=== PATIENT | female | born 1950 | race Caucasian/White ===

== ENCOUNTER 2018-06-01 11:14 | Emergency (ER) | payer SELFPAY, OTHER | END 2018-06-01 11:30 | disposition left against medical advice (07) | LOC: E/R 11:14 | DX: Z53.21 Procedure and treatment not carried out due to patient leaving prior to being seen by health care provider (principal) ==

== ENCOUNTER 2018-06-02 06:40 | Inpatient (IN) | payer MEDICARE, OTHER ==
[2018-06-02] MEDS ORDERED: ETOMIDATE 20 MG INJ (07:00)
[2018-06-02] MEDS ORDERED: PROPOFOL 1000 MG INJ (07:00)
[2018-06-02] MEDS ORDERED: ROCURONIUM 50 MG INJ ×2 (07:00→09:56)
[2018-06-02] MEDS ORDERED: ALBUMIN HUMAN 5% 250 ML INJ (07:00)
[2018-06-02 07:53] LABS: ADD MAN DIFF? NO
[2018-06-02 07:56] LABS: BASOPHILS % 0.6 % (0.0-2.0); EOSINOPHILS # 0.2 10^3/ul (0.0-0.5); EOSINOPHILS % 2.6 % (0.0-7.0); HEMATOCRIT 42.6 % (37.0-47.0); LYMPHOCYTES # 1.7 10^3/ul (0.8-2.9); LYMPHOCYTES % 27.3 % (15.0-51.0); MEAN CORPUSCULAR HGB CONC 32.9 g/dl (32.0-37.0); MEAN CORPUSCULAR VOLUME 97.3 fl (82.0-101.0); MEAN PLATELET VOLUME 11.7 fl (7.4-10.4); MONOCYTE # 0.5 10^3/ul (0.3-0.9); NEUTROPHIL # 3.8 10^3/ul (1.6-7.5); NEUTROPHILS % 61.2 % (39.0-77.0); PLATELET COUNT 160 10^3/UL (140-415); RED BLOOD COUNT 4.38 10^6/ul (4.20-5.40); RED CELL DISTRIBUTION WIDTH 12.1 % (11.5-14.5)
[2018-06-02 07:56] LABS: WHITE BLOOD COUNT 6.2 10^3/ul (4.8-10.8)
[2018-06-02 08:13] LABS: INR 0.91; PROTIME 12.3 Sec (11.9-14.9)
[2018-06-02 08:16] LABS: ALANINE AMINOTRANSFERASE 53 IU/L (13-69); ALBUMIN/GLOBULIN RATIO 1.14; ALKALINE PHOSPHATASE 82 IU/L (42-121); ANION GAP 8 (5-13); ASPARTATE AMINO TRANSFERASE 47 IU/L (15-46); BILIRUBIN,INDIRECT 0.4 mg/dl (0-1.1); BILIRUBIN,TOTAL 0.4 mg/dl (0.2-1.3); BLOOD UREA NITROGEN 16 mg/dl (7-20); CALCIUM 8.7 mg/dl (8.4-10.2); CARBON DIOXIDE 27 mmol/L (21-31); CHLORIDE 107 mmol/L (97-110); CREATININE 0.69 mg/dl (0.44-1.00); Estimated GFR > 60 mL/min (>60); GLUCOSE 116 mg/dl (70-220); POTASSIUM 4.1 mmol/L (3.5-5.1); SODIUM 142 mmol/L (135-144); TOTAL PROTEIN 7.5 g/dl (6.1-8.1)
[2018-06-02 08:32] LABS: PARTIAL THROMBOPLASTIN TIME 35.5 Sec (23.0-35.0)
[2018-06-02] MEDS ORDERED: FENTAnyl 50 MCG/ML VIAL IV ×2 (09:00)
[2018-06-02] MEDS ORDERED: TRIMETHOBENZAMIDE 100 MG/ML VIAL IM (09:00)
[2018-06-02] MEDS ORDERED: ONDANSETRON 4 MG INJ IV (09:00)
[2018-06-02] MEDS ORDERED: ALBUTEROL 0.083% (NEB) 2.5 MG/3 ML AMP HHN (09:00)
[2018-06-02] MEDS ORDERED: LABETALOL HCL 20MG INJ IV (09:00)
[2018-06-02] MEDS ORDERED: OXYCODONE/ACETAMINOPHEN (5/325) TAB PO (09:00)
[2018-06-02] MEDS ORDERED: IPRATROPIUM (NEB) 0.5 MG/2.5 ML AMP HHN (09:00)
[2018-06-02] MEDS ORDERED: MIDAZOLAM 1 MG/ML 2 ML INJ IV (09:00)
[2018-06-02] MEDS ORDERED: MEPERIDINE 25 MG INJ IV (09:00)
[2018-06-02] MEDS ORDERED: HYDROmorphONE 1 MG/5 ML IV SYRINGE IV ×3 (09:00→13:18)
[2018-06-02] MEDS ORDERED: EPHEDrine SULFATE 50 MG/5 ML SYG IV (09:00)
[2018-06-02] MEDS ORDERED: hydrALAzine 20 MG INJ IV (09:00)
[2018-06-02] MEDS ORDERED: PROPOFOL 20 ML (09:56)
[2018-06-02] MEDS ORDERED: MIDAZOLAM 1 MG/ML 2 ML INJ (09:56)
[2018-06-02] MEDS ORDERED: ONDANSETRON 4 MG INJ (09:56)
[2018-06-02] MEDS ORDERED: FENTAnyl 50 MCG/ML VIAL (09:56)
[2018-06-02] MEDS ORDERED: DEXAMETHASONE 4 MG/ML 1 ML INJ (09:56)
[2018-06-02] MEDS ORDERED: NEOSTIGMINE 3 MG/3 ML SYRINGE (09:56)
[2018-06-02] MEDS ORDERED: GLYCOPYRROLATE 0.4 MG INJ (09:56)
[2018-06-02] MEDS ORDERED: CEFAZOLIN 1 GM INJ (09:56)
[2018-06-02] MEDS ORDERED: ACETAMINOPHEN 325 MG TAB PO (10:00)
[2018-06-02] MEDS ORDERED: NACL 0.9% 3 ML SYG IV (10:00)
[2018-06-02] MEDS ORDERED: hydrALAzine 20 MG INJ (10:44)
[2018-06-02] MEDS ORDERED: LABETALOL HCL 20MG INJ (10:52)
[2018-06-02] MEDS: HEPARIN 1000 UNITS/ML 10 ML INJ (10:55)
[2018-06-02] MEDS: CEFAZOLIN 1 GM INJ (10:56)
[2018-06-02] MEDS: GELATIN SIZE 100 SPONGE ×2 (10:56→12:30)
[2018-06-02] MEDS: THROMBIN 5000 UNIT VIAL ×2 (10:57→12:32)
[2018-06-02] MEDS: HEMOSTATIC MATRIX SYG ZFS ×2 (10:58→12:29)
[2018-06-02] MEDS ORDERED: PHENYLephrine (100 MCG/ML) 5ML SYG (11:24)
[2018-06-02] MEDS ORDERED: GELATIN SIZE 100 SPONGE (11:27)
[2018-06-02] MEDS ORDERED: THROMBIN 5000 UNIT VIAL (11:27)
[2018-06-02] MEDS ORDERED: SUGAMMADEX SODIUM 200 MG/2 ML VIAL IV (12:45)
[2018-06-02] MEDS: HYDROmorphONE 1 MG/5 ML IV SYRINGE IV (13:32)
[2018-06-02] MEDS: HYDROmorphONE 0.2 MG/ML PCA IV (13:42)
[2018-06-02] MEDS: FENTAnyl 50 MCG/ML VIAL IV (13:43)
[2018-06-02] MEDS: DIPHENHYDRAMINE 50 MG INJ IV (14:03)
[2018-06-02] MEDS: OXYCODONE/ACETAMINOPHEN (5/325) TAB PO ×2 (18:47→22:42)
[2018-06-02] MEDS: DEXTROSE 5%-0.45% NACL 1,000 ML IV (19:03)
[2018-06-02] MEDS: ATORVASTATIN 10 MG TAB PO (22:42)
[2018-06-03] MEDS: OXYCODONE/ACETAMINOPHEN (5/325) TAB PO (04:14)
[2018-06-03 05:52] LABS: HEMATOCRIT 34.1 % (37.0-47.0); HEMOGLOBIN 11.1 g/dl (12.0-16.0)
[2018-06-03] MEDS: LEVOTHYROXINE 125 MCG TAB PO (06:15)
[2018-06-03] MEDS: HYDROmorphONE 0.2 MG/ML PCA IV ×2 (06:15→20:05)
[2018-06-03 06:31] LABS: ANION GAP 12 (5-13); BLOOD UREA NITROGEN 22 mg/dl (7-20); CARBON DIOXIDE 22 mmol/L (21-31); CHLORIDE 104 mmol/L (97-110); CREATININE 0.98 mg/dl (0.44-1.00); Estimated GFR 57 mL/min (>60); GLUCOSE 160 mg/dl (70-220); POTASSIUM 4.8 mmol/L (3.5-5.1); SODIUM 138 mmol/L (135-144)
[2018-06-03] MEDS ORDERED: ROCURONIUM 50 MG INJ ×2 (07:00→13:08)
[2018-06-03] MEDS: DEXTROSE 5%-0.45% NACL 1,000 ML IV ×3 (08:20→16:44)
[2018-06-03] MEDS: CITALOPRAM 20 MG TAB PO (08:30)
[2018-06-03] MEDS: BENAZEPRIL 20 MG TAB PO (08:30)
[2018-06-03] MEDS ORDERED: THROMBIN 5000 UNIT VIAL (12:47)
[2018-06-03] MEDS ORDERED: GELATIN SIZE 100 SPONGE (12:47)
[2018-06-03] MEDS ORDERED: MIDAZOLAM 1 MG/ML 2 ML INJ (13:08)
[2018-06-03] MEDS ORDERED: PROPOFOL 20 ML (13:08)
[2018-06-03] MEDS ORDERED: CEFAZOLIN 1 GM INJ (13:08)
[2018-06-03] MEDS ORDERED: DEXAMETHASONE 4 MG/ML 1 ML INJ (14:42)
[2018-06-03] MEDS ORDERED: ONDANSETRON 4 MG INJ (14:42)
[2018-06-03] MEDS ORDERED: METOCLOPRAMIDE 10 MG INJ (14:42)
[2018-06-03] MEDS: POLYMYXIN/BACITRACIN 1L IRRIG (14:53)
[2018-06-03] MEDS: ROPIVACAINE 0.5 % 30 ML VIAL (14:54)
[2018-06-03] MEDS ORDERED: LABETALOL HCL 20MG INJ IV (15:30)
[2018-06-03] MEDS ORDERED: ALBUMIN HUMAN 5% 250 ML IV (15:30)
[2018-06-03] MEDS ORDERED: ONDANSETRON 4 MG INJ IV (15:30)
[2018-06-03] MEDS ORDERED: hydrALAzine 20 MG INJ IV (15:30)
[2018-06-03] MEDS ORDERED: EPHEDrine SULFATE 50 MG/5 ML SYG IV (15:30)
[2018-06-03] MEDS ORDERED: DIPHENHYDRAMINE 50 MG INJ IV (15:30)
[2018-06-03] MEDS ORDERED: METOCLOPRAMIDE 10 MG INJ IV (15:30)
[2018-06-03] MEDS ORDERED: FENTAnyl 50 MCG/ML VIAL IV ×3 (15:30)
[2018-06-03] MEDS ORDERED: MEPERIDINE 25 MG INJ IV (15:30)
[2018-06-03] MEDS ORDERED: HYDROmorphONE 0.5 MG/0.5 ML SYG IV ×2 (15:30)
[2018-06-03] MEDS ORDERED: SUGAMMADEX SODIUM 200 MG/2 ML VIAL IV (15:40)
[2018-06-03] MEDS ORDERED: ACETAMINOPHEN 1000MG/100ML IV 100 ML (15:40)
[2018-06-03] MEDS: CEFAZOLIN 2 GM/50 ML (PMX) 50 ML IVPB ×2 (16:44→22:21)
[2018-06-03] MEDS: HYDROmorphONE 0.5 MG/0.5 ML SYG IV (17:02)
[2018-06-03] MEDS: ATORVASTATIN 10 MG TAB PO (21:02)
[2018-06-04] MEDS: CEFAZOLIN 2 GM/50 ML (PMX) 50 ML IVPB ×3 (05:56→21:11)
[2018-06-04] MEDS: DEXTROSE 5%-0.45% NACL 1,000 ML IV (06:00)
[2018-06-04] MEDS: OXYCODONE/ACETAMINOPHEN (5/325) TAB PO ×2 (06:51→21:11)
[2018-06-04] MEDS: LEVOTHYROXINE 125 MCG TAB PO (06:54)
[2018-06-04] MEDS: CITALOPRAM 20 MG TAB PO (08:59)
[2018-06-04] MEDS: BENAZEPRIL 20 MG TAB PO (08:59)
[2018-06-04] MEDS: LIDOCAINE 5% PATCH TD (10:27)
[2018-06-04 18:19] LABS: ADD MAN DIFF? NO
[2018-06-04 18:21] LABS: BASOPHILS % 0.1 % (0.0-2.0); HEMATOCRIT 27.3 % (37.0-47.0); HEMOGLOBIN 8.9 g/dl (12.0-16.0); LYMPHOCYTES # 1.8 10^3/ul (0.8-2.9); MEAN CORPUSCULAR HEMOGLOBIN 33.2 pg (29.0-33.0); MEAN CORPUSCULAR HGB CONC 32.6 g/dl (32.0-37.0); MEAN CORPUSCULAR VOLUME 101.9 fl (82.0-101.0); MEAN PLATELET VOLUME 11.7 fl (7.4-10.4); MONOCYTE # 0.9 10^3/ul (0.3-0.9); MONOCYTES % 6.3 % (0.0-11.0); NEUTROPHIL # 12.1 10^3/ul (1.6-7.5); NEUTROPHILS % 80.5 % (39.0-77.0); PLATELET COUNT 120 10^3/UL (140-415); RED BLOOD COUNT 2.68 10^6/ul (4.20-5.40); RED CELL DISTRIBUTION WIDTH 12.4 % (11.5-14.5)
[2018-06-04 18:47] LABS: ANION GAP 3 (5-13); BLOOD UREA NITROGEN 13 mg/dl (7-20); CALCIUM 7.8 mg/dl (8.4-10.2); CARBON DIOXIDE 28 mmol/L (21-31); CHLORIDE 104 mmol/L (97-110); CREATININE 0.59 mg/dl (0.44-1.00); Estimated GFR > 60 mL/min (>60); GLUCOSE 162 mg/dl (70-220); POTASSIUM 4.1 mmol/L (3.5-5.1); SODIUM 135 mmol/L (135-144)
[2018-06-04] MEDS: ATORVASTATIN 10 MG TAB PO (21:11)
[2018-06-04] MEDS: AL HYDROX/MG HYDROX/SIMETH 30 ML CUP PO (21:11)
[2018-06-04] MEDS: LORAZEPAM 0.5 MG TAB PO (21:11)
[2018-06-04] MEDS: SENNA TAB PO (21:11)
[2018-06-05] MEDS: DEXTROSE 5%-0.45% NACL 1,000 ML IV ×2 (01:01→14:31)
[2018-06-05 05:10] LABS: ADD MAN DIFF? NO
[2018-06-05 05:14] LABS: BASOPHILS % 0.1 % (0.0-2.0); HEMOGLOBIN 8.5 g/dl (12.0-16.0); LYMPHOCYTES # 2.1 10^3/ul (0.8-2.9); LYMPHOCYTES % 18.2 % (15.0-51.0); MEAN CORPUSCULAR HEMOGLOBIN 32.6 pg (29.0-33.0); MEAN CORPUSCULAR HGB CONC 31.5 g/dl (32.0-37.0); MEAN CORPUSCULAR VOLUME 103.4 fl (82.0-101.0); MONOCYTE # 0.8 10^3/ul (0.3-0.9); MONOCYTES % 6.5 % (0.0-11.0); NEUTROPHIL # 8.6 10^3/ul (1.6-7.5); NEUTROPHILS % 74.3 % (39.0-77.0); PLATELET COUNT 126 10^3/UL (140-415); RED BLOOD COUNT 2.61 10^6/ul (4.20-5.40); RED CELL DISTRIBUTION WIDTH 12.4 % (11.5-14.5)
[2018-06-05 05:14] LABS: WHITE BLOOD COUNT 11.6 10^3/ul (4.8-10.8)
[2018-06-05] MEDS: CEFAZOLIN 2 GM/50 ML (PMX) 50 ML IVPB ×3 (05:38→22:04)
[2018-06-05 05:46] LABS: ANION GAP 3 (5-13); BLOOD UREA NITROGEN 13 mg/dl (7-20); CALCIUM 7.6 mg/dl (8.4-10.2); CARBON DIOXIDE 33 mmol/L (21-31); CHLORIDE 103 mmol/L (97-110); CREATININE 0.61 mg/dl (0.44-1.00); Estimated GFR > 60 mL/min (>60); GLUCOSE 125 mg/dl (70-220); POTASSIUM 3.9 mmol/L (3.5-5.1); SODIUM 139 mmol/L (135-144)
[2018-06-05] MEDS: LEVOTHYROXINE 125 MCG TAB PO (08:02)
[2018-06-05] MEDS: CITALOPRAM 20 MG TAB PO (08:42)
[2018-06-05] MEDS: BENAZEPRIL 20 MG TAB PO (08:42)
[2018-06-05] MEDS: LIDOCAINE 5% PATCH TD (08:42)
[2018-06-05] MEDS: MAGNESIUM HYDROXIDE 30ML CUP PO (08:42)
[2018-06-05] MEDS: SENNA TAB PO ×2 (08:42→21:09)
[2018-06-05] MEDS: HYDROmorphONE 0.2 MG/ML PCA IV (13:46)
[2018-06-05] MEDS: LORAZEPAM 0.5 MG TAB PO ×2 (14:29→22:42)
[2018-06-05] MEDS: OXYMETAZOLINE 0.05% 15 ML NAS SPRAY NASAL ×2 (15:00→22:03)
[2018-06-05] MEDS: ATORVASTATIN 10 MG TAB PO (21:09)
[2018-06-06] MEDS: DEXTROSE 5%-0.45% NACL 1,000 ML IV ×2 (02:30→15:09)
[2018-06-06 05:34] LABS: ADD MAN DIFF? NO
[2018-06-06] MEDS: CEFAZOLIN 2 GM/50 ML (PMX) 50 ML IVPB ×3 (05:37→21:00)
[2018-06-06] MEDS: LEVOTHYROXINE 125 MCG TAB PO (05:37)
[2018-06-06 05:38] LABS: BASOPHILS % 0.1 % (0.0-2.0); EOSINOPHILS # 0.1 10^3/ul (0.0-0.5); EOSINOPHILS % 0.7 % (0.0-7.0); HEMATOCRIT 27.4 % (37.0-47.0); HEMOGLOBIN 8.8 g/dl (12.0-16.0); LYMPHOCYTES # 2.1 10^3/ul (0.8-2.9); LYMPHOCYTES % 22.8 % (15.0-51.0); MEAN CORPUSCULAR HEMOGLOBIN 32.6 pg (29.0-33.0); MEAN CORPUSCULAR HGB CONC 32.1 g/dl (32.0-37.0); MEAN CORPUSCULAR VOLUME 101.5 fl (82.0-101.0); MEAN PLATELET VOLUME 11.8 fl (7.4-10.4); MONOCYTE # 0.8 10^3/ul (0.3-0.9); MONOCYTES % 8.5 % (0.0-11.0); NEUTROPHIL # 6.1 10^3/ul (1.6-7.5); NEUTROPHILS % 67.5 % (39.0-77.0); PLATELET COUNT 149 10^3/UL (140-415); RED CELL DISTRIBUTION WIDTH 12.2 % (11.5-14.5)
[2018-06-06 05:38] LABS: WHITE BLOOD COUNT 9.1 10^3/ul (4.8-10.8)
[2018-06-06] MEDS: MAGNESIUM HYDROXIDE 30ML CUP PO (06:01)
[2018-06-06 06:07] LABS: ANION GAP 2 (5-13); BLOOD UREA NITROGEN 9 mg/dl (7-20); CALCIUM 7.4 mg/dl (8.4-10.2); CARBON DIOXIDE 32 mmol/L (21-31); CHLORIDE 103 mmol/L (97-110); CREATININE 0.54 mg/dl (0.44-1.00); Estimated GFR > 60 mL/min (>60); GLUCOSE 125 mg/dl (70-220); POTASSIUM 3.9 mmol/L (3.5-5.1); SODIUM 137 mmol/L (135-144)
[2018-06-06] MEDS: CITALOPRAM 20 MG TAB PO (08:56)
[2018-06-06] MEDS: SENNA TAB PO ×2 (08:56→21:00)
[2018-06-06] MEDS: BENAZEPRIL 20 MG TAB PO (08:56)
[2018-06-06] MEDS: LIDOCAINE 5% PATCH TD (08:57)
[2018-06-06] MEDS: OXYMETAZOLINE 0.05% 15 ML NAS SPRAY NASAL ×2 (09:36→21:00)
[2018-06-06] MEDS: HYDROmorphONE 0.2 MG/ML PCA IV (10:33)
[2018-06-06] MEDS: OXYCODONE/ACETAMINOPHEN (5/325) TAB PO (19:52)
[2018-06-06] MEDS: ATORVASTATIN 10 MG TAB PO (21:00)
[2018-06-07] MEDS: HYDROmorphONE 0.2 MG/ML PCA IV (03:56)
[2018-06-07] MEDS: CEFAZOLIN 2 GM/50 ML (PMX) 50 ML IVPB (05:06)
[2018-06-07] MEDS: LEVOTHYROXINE 125 MCG TAB PO (05:58)
[2018-06-07] MEDS: DEXTROSE 5%-0.45% NACL 1,000 ML IV (05:59)
[2018-06-07] MEDS: LIDOCAINE 5% PATCH TD (09:31)
[2018-06-07] MEDS: SENNA TAB PO ×2 (09:33→21:00)
[2018-06-07] MEDS: CITALOPRAM 20 MG TAB PO (09:33)
[2018-06-07] MEDS: BENAZEPRIL 20 MG TAB PO (09:37)
[2018-06-07] MEDS: OXYMETAZOLINE 0.05% 15 ML NAS SPRAY NASAL ×2 (09:37→21:47)
[2018-06-07] MEDS: MAGNESIUM HYDROXIDE 30ML CUP PO (09:38)
[2018-06-07] MEDS: BISACODYL 10 MG SUPP PR (12:49)
[2018-06-07] MEDS ORDERED: HYDROCODONE/APAP (10/325) TAB PO (13:00)
[2018-06-07] MEDS: HYDROCODONE/APAP (10/325) TAB PO ×2 (16:11→22:28)
[2018-06-07] MEDS: ATORVASTATIN 10 MG TAB PO (21:45)
[2018-06-08] MEDS: HYDROCODONE/APAP (10/325) TAB PO ×4 (01:03→14:04)
[2018-06-08 05:05] LABS: ADD MAN DIFF? NO
[2018-06-08 05:11] LABS: BASOPHILS % 0.2 % (0.0-2.0); EOSINOPHILS # 0.2 10^3/ul (0.0-0.5); EOSINOPHILS % 2.6 % (0.0-7.0); HEMOGLOBIN 8.8 g/dl (12.0-16.0); LYMPHOCYTES % 22.5 % (15.0-51.0); MEAN CORPUSCULAR HEMOGLOBIN 31.9 pg (29.0-33.0); MEAN CORPUSCULAR HGB CONC 32.6 g/dl (32.0-37.0); MEAN CORPUSCULAR VOLUME 97.8 fl (82.0-101.0); MEAN PLATELET VOLUME 11.4 fl (7.4-10.4); MONOCYTE # 0.7 10^3/ul (0.3-0.9); MONOCYTES % 7.4 % (0.0-11.0); NEUTROPHIL # 5.9 10^3/ul (1.6-7.5); NEUTROPHILS % 66.6 % (39.0-77.0); PLATELET COUNT 180 10^3/UL (140-415); RED BLOOD COUNT 2.76 10^6/ul (4.20-5.40); RED CELL DISTRIBUTION WIDTH 12.2 % (11.5-14.5)
[2018-06-08 05:11] LABS: WHITE BLOOD COUNT 8.8 10^3/ul (4.8-10.8)
[2018-06-08 05:38] LABS: ANION GAP 3 (5-13); BLOOD UREA NITROGEN 7 mg/dl (7-20); CARBON DIOXIDE 29 mmol/L (21-31); CHLORIDE 106 mmol/L (97-110); CREATININE 0.47 mg/dl (0.44-1.00); Estimated GFR > 60 mL/min (>60); GLUCOSE 113 mg/dl (70-220); POTASSIUM 3.9 mmol/L (3.5-5.1); SODIUM 138 mmol/L (135-144)
[2018-06-08] MEDS: LEVOTHYROXINE 125 MCG TAB PO (06:16)
[2018-06-08] MEDS: OXYMETAZOLINE 0.05% 15 ML NAS SPRAY NASAL (08:56)
[2018-06-08] MEDS: BENAZEPRIL 20 MG TAB PO (08:57)
[2018-06-08] MEDS: CITALOPRAM 20 MG TAB PO (08:57)
[2018-06-08] MEDS: SENNA TAB PO (08:57)
[2018-06-08] MEDS: LIDOCAINE 5% PATCH TD (08:59)
[2018-06-08] MEDS: MAGNESIUM HYDROXIDE 30ML CUP PO (10:59)
== END 2018-06-08 18:55 | DRG 455 ==
LOC: REC 06:40 → MS1 06-05 13:47 → ICU 16:28
PROC: 0SG10A0 Fusion of 2 or more Lumbar Vertebral Joints with Interbody Fusion Device, Anterior Approach, Anterior Column, Open Approach (ICD-10-PCS; principal; 2018-06-02 09:00)
PROC: 0SG30A0 Fusion of Lumbosacral Joint with Interbody Fusion Device, Anterior Approach, Anterior Column, Open Approach (ICD-10-PCS; 2018-06-02 09:00)
PROC: 0SB20ZZ Excision of Lumbar Vertebral Disc, Open Approach (ICD-10-PCS; 2018-06-02 09:00)
PROC: 0SB40ZZ Excision of Lumbosacral Disc, Open Approach (ICD-10-PCS; 2018-06-02 09:00)
PROC: 0SG10K1 Fusion of 2 or more Lumbar Vertebral Joints with Nonautologous Tissue Substitute, Posterior Approach, Posterior Column, Open Approach (ICD-10-PCS; 2018-06-02 09:42)
PROC: 0SG30K1 Fusion of Lumbosacral Joint with Nonautologous Tissue Substitute, Posterior Approach, Posterior Column, Open Approach (ICD-10-PCS; 2018-06-02 09:42)
DX: M47.26 Other spondylosis with radiculopathy, lumbar region (principal); M21.379 Foot drop, unspecified foot; G35 Multiple sclerosis; I10 Essential (primary) hypertension; E78.5 Hyperlipidemia, unspecified; E03.9 Hypothyroidism, unspecified; M51.17 Intervertebral disc disorders with radiculopathy, lumbosacral region; E66.9 Obesity, unspecified; Z68.34 Body mass index [BMI] 34.0-34.9, adult
CPT/HCPCS: 71045; 72110; 72114; 72131; 80048; 80053; 85014; 85018; 85025; 85610; 85730; 86850; 86900; 86901; 86920; 87081; 87086; 88304; 93005; 97110; 97116; 97162; 97530

== ENCOUNTER 2018-06-08 19:11 | Inpatient (IN) | payer MEDICARE, OTHER ==
[2018-06-08] MEDS ORDERED: NACL 0.9% 3 ML SYG IV (20:30)
[2018-06-08] MEDS ORDERED: ACETAMINOPHEN 325 MG TAB PO (20:30)
[2018-06-08] MEDS: SENNA TAB PO (21:00)
[2018-06-08] MEDS: OXYMETAZOLINE 0.05% 15 ML NAS SPRAY NASAL (21:00)
[2018-06-08] MEDS: ATORVASTATIN 10 MG TAB PO (21:00)
[2018-06-08] MEDS: HYDROCODONE/APAP (10/325) TAB PO (22:57)
[2018-06-09] MEDS: HYDROCODONE/APAP (10/325) TAB PO ×6 (03:22→21:49)
[2018-06-09] MEDS: AL HYDROX/MG HYDROX/SIMETH 30 ML CUP PO (06:51)
[2018-06-09] MEDS: LEVOTHYROXINE 125 MCG TAB PO (07:30)
[2018-06-09 07:35] LABS: ADD MAN DIFF? NO
[2018-06-09 07:47] LABS: WHITE BLOOD COUNT 8.4 10^3/ul (4.8-10.8)
[2018-06-09 07:47] LABS: BASOPHILS % 0.2 % (0.0-2.0); EOSINOPHILS # 0.2 10^3/ul (0.0-0.5); EOSINOPHILS % 2.8 % (0.0-7.0); HEMATOCRIT 28.4 % (37.0-47.0); HEMOGLOBIN 9.2 g/dl (12.0-16.0); LYMPHOCYTES # 2.2 10^3/ul (0.8-2.9); LYMPHOCYTES % 26.3 % (15.0-51.0); MEAN CORPUSCULAR HEMOGLOBIN 32.4 pg (29.0-33.0); MEAN CORPUSCULAR HGB CONC 32.4 g/dl (32.0-37.0); MEAN PLATELET VOLUME 11.4 fl (7.4-10.4); MONOCYTE # 0.8 10^3/ul (0.3-0.9); MONOCYTES % 9.5 % (0.0-11.0); NEUTROPHIL # 5.1 10^3/ul (1.6-7.5); NEUTROPHILS % 60.4 % (39.0-77.0); PLATELET COUNT 201 10^3/UL (140-415); RED BLOOD COUNT 2.84 10^6/ul (4.20-5.40)
[2018-06-09 08:22] LABS: ALANINE AMINOTRANSFERASE 54 IU/L (13-69); ALBUMIN 2.7 g/dl (3.3-4.9); ALBUMIN/GLOBULIN RATIO 0.96; ALKALINE PHOSPHATASE 136 IU/L (42-121); ANION GAP 3 (5-13); ASPARTATE AMINO TRANSFERASE 50 IU/L (15-46); BILIRUBIN,INDIRECT 0.6 mg/dl (0-1.1); BILIRUBIN,TOTAL 0.6 mg/dl (0.2-1.3); BLOOD UREA NITROGEN 7 mg/dl (7-20); CALCIUM 8.1 mg/dl (8.4-10.2); CARBON DIOXIDE 29 mmol/L (21-31); CHLORIDE 104 mmol/L (97-110); Estimated GFR > 60 mL/min (>60); GLUCOSE 104 mg/dl (70-220); POTASSIUM 4.2 mmol/L (3.5-5.1); SODIUM 136 mmol/L (135-144); TOTAL PROTEIN 5.5 g/dl (6.1-8.1)
[2018-06-09] MEDS: BENAZEPRIL 20 MG TAB PO (08:48)
[2018-06-09] MEDS: CITALOPRAM 20 MG TAB PO (08:48)
[2018-06-09] MEDS: OXYMETAZOLINE 0.05% 15 ML NAS SPRAY NASAL ×2 (08:48→20:32)
[2018-06-09] MEDS: SENNA TAB PO ×2 (08:48→20:33)
[2018-06-09] MEDS: LIDOCAINE 5% PATCH TD (08:51)
[2018-06-09 11:32] LABS: ADD UMIC NO; UR ASCORBIC ACID NEGATIVE (NEGATIVE); UR BILIRUBIN (Dip) NEGATIVE (NEGATIVE); UR BLOOD (Dip) NEGATIVE (NEGATIVE); UR CLARITY CLEAR (CLEAR); UR COLOR YELLOW (YELLOW); UR GLUCOSE (Dip) NEGATIVE (NEGATIVE); UR KETONES (Dip) NEGATIVE (NEGATIVE); UR LEUKOCYTE ESTERASE (Dip) NEGATIVE Leu/ul (NEGATIVE); UR NITRITE (Dip) NEGATIVE (NEGATIVE); UR TOTAL PROTEIN (Dip) NEGATIVE (NEGATIVE); UR UROBILINOGEN (Dip) NEGATIVE (NEGATIVE)
[2018-06-09] MEDS: MAGNESIUM HYDROXIDE 30ML CUP PO (16:09)
[2018-06-09] MEDS: LORAZEPAM 0.5 MG TAB PO (20:14)
[2018-06-09] MEDS: ATORVASTATIN 10 MG TAB PO (20:33)
[2018-06-10] MEDS: HYDROCODONE/APAP (10/325) TAB PO ×4 (05:09→20:19)
[2018-06-10] MEDS: LEVOTHYROXINE 125 MCG TAB PO (08:04)
[2018-06-10] MEDS: SENNA TAB PO ×2 (09:00→20:18)
[2018-06-10] MEDS: CITALOPRAM 20 MG TAB PO (09:13)
[2018-06-10] MEDS: OXYMETAZOLINE 0.05% 15 ML NAS SPRAY NASAL ×2 (09:13→20:20)
[2018-06-10] MEDS: BENAZEPRIL 20 MG TAB PO (09:14)
[2018-06-10] MEDS: LIDOCAINE 5% PATCH TD (09:14)
[2018-06-10] MEDS: ATORVASTATIN 10 MG TAB PO (20:18)
[2018-06-10] MEDS: LORAZEPAM 0.5 MG TAB PO (20:18)
[2018-06-11] MEDS: HYDROCODONE/APAP (10/325) TAB PO ×4 (03:08→19:40)
[2018-06-11] MEDS: LEVOTHYROXINE 125 MCG TAB PO (06:40)
[2018-06-11] MEDS: SENNA TAB PO ×2 (08:30→20:34)
[2018-06-11] MEDS: BENAZEPRIL 20 MG TAB PO (08:31)
[2018-06-11] MEDS: OXYMETAZOLINE 0.05% 15 ML NAS SPRAY NASAL ×2 (08:31→20:34)
[2018-06-11] MEDS: CITALOPRAM 20 MG TAB PO (08:31)
[2018-06-11] MEDS: LIDOCAINE 5% PATCH TD (08:32)
[2018-06-11] MEDS: LORAZEPAM 0.5 MG TAB PO (20:33)
[2018-06-11] MEDS: ATORVASTATIN 10 MG TAB PO (20:34)
[2018-06-12] MEDS: MAGNESIUM HYDROXIDE 30ML CUP PO (01:58)
[2018-06-12] MEDS: HYDROCODONE/APAP (10/325) TAB PO ×3 (01:58→12:29)
[2018-06-12] MEDS: LEVOTHYROXINE 125 MCG TAB PO (06:28)
[2018-06-12] MEDS: BISACODYL 10 MG SUPP PR (06:42)
[2018-06-12] MEDS: BENAZEPRIL 20 MG TAB PO (09:00)
[2018-06-12] MEDS: OXYMETAZOLINE 0.05% 15 ML NAS SPRAY NASAL (09:59)
[2018-06-12] MEDS: LIDOCAINE 5% PATCH TD (09:59)
[2018-06-12] MEDS: SENNA TAB PO (09:59)
[2018-06-12] MEDS: CITALOPRAM 20 MG TAB PO (09:59)
[2018-06-12] MEDS ORDERED: NITROGLYCERIN (SL) 0.4 MG TAB SL (15:30)
[2018-06-12 15:33] LABS: ADD MAN DIFF? NO
[2018-06-12 15:35] LABS: WHITE BLOOD COUNT 6.9 10^3/ul (4.8-10.8)
[2018-06-12 15:35] LABS: BASOPHILS % 0.3 % (0.0-2.0); EOSINOPHILS # 0.2 10^3/ul (0.0-0.5); EOSINOPHILS % 2.2 % (0.0-7.0); HEMATOCRIT 32.9 % (37.0-47.0); HEMOGLOBIN 10.7 g/dl (12.0-16.0); LYMPHOCYTES # 1.7 10^3/ul (0.8-2.9); LYMPHOCYTES % 24.1 % (15.0-51.0); MEAN CORPUSCULAR HEMOGLOBIN 32.2 pg (29.0-33.0); MEAN CORPUSCULAR HGB CONC 32.5 g/dl (32.0-37.0); MEAN CORPUSCULAR VOLUME 99.1 fl (82.0-101.0); MEAN PLATELET VOLUME 10.6 fl (7.4-10.4); MONOCYTE # 0.7 10^3/ul (0.3-0.9); MONOCYTES % 9.7 % (0.0-11.0); NEUTROPHIL # 4.4 10^3/ul (1.6-7.5); NEUTROPHILS % 63.1 % (39.0-77.0); PLATELET COUNT 258 10^3/UL (140-415); RED BLOOD COUNT 3.32 10^6/ul (4.20-5.40); RED CELL DISTRIBUTION WIDTH 12.5 % (11.5-14.5)
[2018-06-12 15:57] LABS: ALANINE AMINOTRANSFERASE 44 IU/L (13-69); ALBUMIN 3.5 g/dl (3.3-4.9); ALBUMIN/GLOBULIN RATIO 1.02; ALKALINE PHOSPHATASE 137 IU/L (42-121); ANION GAP 9 (5-13); ASPARTATE AMINO TRANSFERASE 59 IU/L (15-46); BILIRUBIN,INDIRECT 0.3 mg/dl (0-1.1); BILIRUBIN,TOTAL 0.3 mg/dl (0.2-1.3); BLOOD UREA NITROGEN 12 mg/dl (7-20); CALCIUM 8.5 mg/dl (8.4-10.2); CARBON DIOXIDE 30 mmol/L (21-31); CHLORIDE 99 mmol/L (97-110); CREATININE 0.68 mg/dl (0.44-1.00); Estimated GFR > 60 mL/min (>60); GLUCOSE 136 mg/dl (70-220); MAGNESIUM 2.6 mg/dl (1.7-2.5); POTASSIUM 4.8 mmol/L (3.5-5.1); SODIUM 138 mmol/L (135-144); TOTAL PROTEIN 6.9 g/dl (6.1-8.1)
[2018-06-12 16:06] LABS: TROPONIN-I < 0.012 ng/ml (0.000-0.120)
[2018-06-12] MEDS: ASPIRIN 81 MG TAB PO (16:11)
[2018-06-12 17:02] LABS: CREATINE KINASE 94 IU/L (23-200)
[2018-06-12 17:14] LABS: CK INDEX 0.7; CK-MB 0.69 ng/ml (0.0-2.4); TROPONIN-I 0.018 ng/ml (0.000-0.120)
== END 2018-06-12 15:38 | disposition short-term general hospital (02) | DRG 552 ==
LOC: VRC 19:11
DX: M54.16 Radiculopathy, lumbar region (principal); G35 Multiple sclerosis; I10 Essential (primary) hypertension; E78.5 Hyperlipidemia, unspecified; E03.9 Hypothyroidism, unspecified; R07.9 Chest pain, unspecified; Z98.1 Arthrodesis status; D64.9 Anemia, unspecified
CPT/HCPCS: 80053; 81003; 82550; 82553; 82962; 83735; 84484; 85025; 87081; 87086; 90686; 93005; 97110; 97112; 97116; 97150; 97163; 97167; 97530; 97535

== ENCOUNTER 2018-06-12 16:28 | Observation (INO) | payer MEDICARE, OTHER ==
[2018-06-12] MEDS ORDERED: NITROGLYCERIN (SL) 0.4 MG TAB SL (17:30)
[2018-06-12] MEDS ORDERED: ACETAMINOPHEN 325 MG TAB PO (17:30)
[2018-06-12] MEDS: LORAZEPAM 0.5 MG TAB PO (19:14)
[2018-06-12] MEDS: HYDROCODONE/APAP (10/325) TAB PO (19:14)
[2018-06-12 19:37] LABS: TROPONIN-I < 0.012 ng/ml (0.000-0.120)
[2018-06-12] MEDS: ATORVASTATIN 10 MG TAB PO (20:45)
[2018-06-12] MEDS: OXYMETAZOLINE 0.05% 15 ML NAS SPRAY NASAL (20:45)
[2018-06-12] MEDS: LIDOCAINE 5% PATCH TD (20:47)
[2018-06-12] MEDS: SENNA TAB PO (21:00)
[2018-06-12] MEDS ORDERED: HYDROCODONE/APAP (10/325) TAB PO ×2 (21:00)
[2018-06-12] MEDS ORDERED: LIDOCAINE 5% PATCH TD (21:00)
[2018-06-13 00:36] LABS: TROPONIN-I < 0.012 ng/ml (0.000-0.120)
[2018-06-13] MEDS: HYDROCODONE/APAP (10/325) TAB PO ×4 (00:49→16:41)
[2018-06-13] MEDS: LEVOTHYROXINE 125 MCG TAB PO (06:22)
[2018-06-13 06:55] LABS: TROPONIN-I < 0.012 ng/ml (0.000-0.120)
[2018-06-13] MEDS ORDERED: LEVOTHYROXINE 125 MCG TAB PO (07:00)
[2018-06-13] MEDS ORDERED: CITALOPRAM 20 MG TAB PO (09:00)
[2018-06-13] MEDS ORDERED: BENAZEPRIL 20 MG TAB PO (09:00)
[2018-06-13] MEDS: SENNA TAB PO ×2 (09:18→20:58)
[2018-06-13] MEDS: CITALOPRAM 20 MG TAB PO (09:18)
[2018-06-13] MEDS: MAGNESIUM HYDROXIDE 30ML CUP PO (09:20)
[2018-06-13] MEDS: LIDOCAINE 5% PATCH TD (09:21)
[2018-06-13] MEDS: OXYMETAZOLINE 0.05% 15 ML NAS SPRAY NASAL ×2 (09:24→20:59)
[2018-06-13] MEDS: LORAZEPAM 0.5 MG TAB PO ×2 (11:47→21:07)
[2018-06-13] MEDS: BENAZEPRIL 20 MG TAB PO (12:45)
[2018-06-13] MEDS: CEFAZOLIN 2 GM/50 ML (PMX) 50 ML IVPB (14:33)
[2018-06-13] MEDS: NEOMYC/POLYMYX/BACIT 30 GM OINT TOP ×2 (14:39→20:58)
[2018-06-13] MEDS: ATORVASTATIN 10 MG TAB PO (20:58)
[2018-06-14] MEDS: HYDROCODONE/APAP (10/325) TAB PO ×4 (00:34→21:17)
[2018-06-14] MEDS: CEFAZOLIN 2 GM/50 ML (PMX) 50 ML IVPB (00:42)
[2018-06-14] MEDS: LEVOTHYROXINE 125 MCG TAB PO (06:18)
[2018-06-14] MEDS: MAGNESIUM HYDROXIDE 30ML CUP PO (08:50)
[2018-06-14] MEDS: BENAZEPRIL 20 MG TAB PO (08:51)
[2018-06-14] MEDS: CITALOPRAM 20 MG TAB PO (08:51)
[2018-06-14] MEDS: SENNA TAB PO ×2 (08:51→20:22)
[2018-06-14] MEDS: LIDOCAINE 5% PATCH TD (08:52)
[2018-06-14] MEDS: OXYMETAZOLINE 0.05% 15 ML NAS SPRAY NASAL ×2 (08:53→20:24)
[2018-06-14] MEDS: NEOMYC/POLYMYX/BACIT 30 GM OINT TOP ×2 (08:54→20:23)
[2018-06-14] MEDS ORDERED: BISACODYL 10 MG SUPP PR (12:30)
[2018-06-14] MEDS: BISACODYL 10 MG SUPP PR (12:44)
[2018-06-14] MEDS: ATORVASTATIN 10 MG TAB PO (20:22)
[2018-06-14] MEDS: LORAZEPAM 0.5 MG TAB PO (21:21)
[2018-06-15] MEDS: HYDROCODONE/APAP (10/325) TAB PO ×2 (04:30→12:33)
[2018-06-15 06:09] LABS: ADD MAN DIFF? NO
[2018-06-15] MEDS: LEVOTHYROXINE 125 MCG TAB PO (06:11)
[2018-06-15 06:18] LABS: BASOPHILS % 0.5 % (0.0-2.0); EOSINOPHILS # 0.2 10^3/ul (0.0-0.5); EOSINOPHILS % 2.6 % (0.0-7.0); HEMATOCRIT 30.7 % (37.0-47.0); HEMOGLOBIN 9.8 g/dl (12.0-16.0); LYMPHOCYTES # 1.7 10^3/ul (0.8-2.9); LYMPHOCYTES % 28.7 % (15.0-51.0); MEAN CORPUSCULAR HEMOGLOBIN 31.9 pg (29.0-33.0); MEAN CORPUSCULAR HGB CONC 31.9 g/dl (32.0-37.0); MONOCYTE # 0.6 10^3/ul (0.3-0.9); MONOCYTES % 9.8 % (0.0-11.0); NEUTROPHIL # 3.3 10^3/ul (1.6-7.5); NEUTROPHILS % 57.9 % (39.0-77.0); PLATELET COUNT 269 10^3/UL (140-415); RED BLOOD COUNT 3.07 10^6/ul (4.20-5.40); RED CELL DISTRIBUTION WIDTH 12.5 % (11.5-14.5)
[2018-06-15 06:18] LABS: WHITE BLOOD COUNT 5.7 10^3/ul (4.8-10.8)
[2018-06-15 06:46] LABS: ANION GAP 5 (5-13); BLOOD UREA NITROGEN 10 mg/dl (7-20); CALCIUM 8.3 mg/dl (8.4-10.2); CARBON DIOXIDE 29 mmol/L (21-31); CHLORIDE 104 mmol/L (97-110); CREATININE 0.67 mg/dl (0.44-1.00); Estimated GFR > 60 mL/min (>60); GLUCOSE 112 mg/dl (70-220); POTASSIUM 4.6 mmol/L (3.5-5.1); SODIUM 138 mmol/L (135-144)
[2018-06-15] MEDS: LIDOCAINE 5% PATCH TD (08:45)
[2018-06-15] MEDS: BENAZEPRIL 20 MG TAB PO (08:46)
[2018-06-15] MEDS: CITALOPRAM 20 MG TAB PO (08:46)
[2018-06-15] MEDS: MAGNESIUM HYDROXIDE 30ML CUP PO (08:46)
[2018-06-15] MEDS: SENNA TAB PO (08:47)
[2018-06-15] MEDS: OXYMETAZOLINE 0.05% 15 ML NAS SPRAY NASAL (08:49)
[2018-06-15] MEDS: NEOMYC/POLYMYX/BACIT 30 GM OINT TOP (08:50)
== END 2018-06-15 17:04 ==
LOC: TEL 16:28
PROVIDERS: Internal Medicine
DX: R07.9 Chest pain, unspecified (principal); R06.02 Shortness of breath; I10 Essential (primary) hypertension; E78.5 Hyperlipidemia, unspecified; E03.9 Hypothyroidism, unspecified; G35 Multiple sclerosis; M54.5 Low back pain
CPT/HCPCS: 80048; 84484; 85025; 93005; 93306; 97116; 97162; 97167; 97530; 97535; 99217; G0378

== ENCOUNTER 2018-06-15 17:15 | Inpatient (IN) | payer MEDICARE, OTHER ==
[2018-06-15] MEDS ORDERED: BISACODYL 10 MG SUPP PR (17:30)
[2018-06-15] MEDS ORDERED: ACETAMINOPHEN 325 MG TAB PO (17:30)
[2018-06-15] MEDS ORDERED: LACTULOSE 30ML CUP PO (17:30)
[2018-06-15] MEDS ORDERED: PENDING SANTYL ORDER FOR WOUND CARE XX (17:30)
[2018-06-15] MEDS: HYDROCODONE/APAP (10/325) TAB PO (18:40)
[2018-06-15] MEDS ORDERED: NITROGLYCERIN (SL) 0.4 MG TAB SL (19:30)
[2018-06-15] MEDS: SENNA TAB PO (21:00)
[2018-06-15] MEDS: DOCUSATE SODIUM 100 MG CAP PO (21:00)
[2018-06-15] MEDS ORDERED: SENNA TAB PO (21:00)
[2018-06-15] MEDS: OXYMETAZOLINE 0.05% 15 ML NAS SPRAY NASAL (21:11)
[2018-06-15] MEDS: NEOMYC/POLYMYX/BACIT 30 GM OINT TOP (21:12)
[2018-06-15] MEDS: ATORVASTATIN 10 MG TAB PO (21:14)
[2018-06-15] MEDS: LORAZEPAM 0.5 MG TAB PO (21:22)
[2018-06-15 23:35] LABS: ADD UMIC YES; UR ASCORBIC ACID NEGATIVE (NEGATIVE); UR BACTERIA MODERATE /HPF (NONE SEEN); UR BILIRUBIN (Dip) NEGATIVE (NEGATIVE); UR BLOOD (Dip) 1+ mg/dL (NEGATIVE); UR CLARITY CLOUDY (CLEAR); UR COLOR YELLOW (YELLOW); UR GLUCOSE (Dip) NEGATIVE (NEGATIVE); UR KETONES (Dip) NEGATIVE (NEGATIVE); UR LEUKOCYTE ESTERASE (Dip) NEGATIVE Leu/ul (NEGATIVE); UR MUCUS FEW /HPF (NONE SEEN); UR NITRITE (Dip) NEGATIVE (NEGATIVE); UR RBC 5 /HPF (0-5); UR SPECIFIC GRAVITY (Dip) 1.015 (1.003-1.030); UR SQUAMOUS EPITHELIAL CELL FEW /HPF (FEW); UR TOTAL PROTEIN (Dip) NEGATIVE (NEGATIVE); UR UROBILINOGEN (Dip) NEGATIVE (NEGATIVE); UR WBC 2 /HPF (0-5)
[2018-06-16] MEDS: HYDROCODONE/APAP (10/325) TAB PO ×5 (01:34→17:00)
[2018-06-16 07:24] LABS: ADD MAN DIFF? NO
[2018-06-16 07:31] LABS: BASOPHIL # 0.1 10^3/ul (0.0-0.1); BASOPHILS % 0.8 % (0.0-2.0); EOSINOPHILS # 0.2 10^3/ul (0.0-0.5); EOSINOPHILS % 2.8 % (0.0-7.0); HEMATOCRIT 32.6 % (37.0-47.0); HEMOGLOBIN 10.4 g/dl (12.0-16.0); LYMPHOCYTES # 2.3 10^3/ul (0.8-2.9); LYMPHOCYTES % 35.4 % (15.0-51.0); MEAN CORPUSCULAR HGB CONC 31.9 g/dl (32.0-37.0); MEAN CORPUSCULAR VOLUME 100.3 fl (82.0-101.0); MONOCYTE # 0.6 10^3/ul (0.3-0.9); MONOCYTES % 9.4 % (0.0-11.0); NEUTROPHIL # 3.3 10^3/ul (1.6-7.5); NEUTROPHILS % 51.3 % (39.0-77.0); PLATELET COUNT 284 10^3/UL (140-415); RED BLOOD COUNT 3.25 10^6/ul (4.20-5.40); RED CELL DISTRIBUTION WIDTH 12.4 % (11.5-14.5)
[2018-06-16 07:31] LABS: WHITE BLOOD COUNT 6.5 10^3/ul (4.8-10.8)
[2018-06-16 07:49] LABS: ALANINE AMINOTRANSFERASE 31 IU/L (13-69); ALBUMIN 3.4 g/dl (3.3-4.9); ALBUMIN/GLOBULIN RATIO 1.06; ALKALINE PHOSPHATASE 142 IU/L (42-121); ANION GAP 8 (5-13); ASPARTATE AMINO TRANSFERASE 43 IU/L (15-46); BILIRUBIN,INDIRECT 0.4 mg/dl (0-1.1); BILIRUBIN,TOTAL 0.4 mg/dl (0.2-1.3); BLOOD UREA NITROGEN 10 mg/dl (7-20); CALCIUM 8.4 mg/dl (8.4-10.2); CARBON DIOXIDE 29 mmol/L (21-31); CHLORIDE 101 mmol/L (97-110); CREATININE 0.64 mg/dl (0.44-1.00); Estimated GFR > 60 mL/min (>60); GLUCOSE 108 mg/dl (70-220); POTASSIUM 4.3 mmol/L (3.5-5.1); SODIUM 138 mmol/L (135-144); TOTAL PROTEIN 6.6 g/dl (6.1-8.1)
[2018-06-16] MEDS: MAGNESIUM HYDROXIDE 30ML CUP PO (08:00)
[2018-06-16] MEDS: BENAZEPRIL 20 MG TAB PO (08:00)
[2018-06-16] MEDS: DOCUSATE SODIUM 100 MG CAP PO ×2 (08:01→21:37)
[2018-06-16] MEDS: NEOMYC/POLYMYX/BACIT 30 GM OINT TOP ×2 (08:40→21:43)
[2018-06-16] MEDS: LEVOTHYROXINE 125 MCG TAB PO (08:41)
[2018-06-16] MEDS: OXYMETAZOLINE 0.05% 15 ML NAS SPRAY NASAL ×2 (08:41→21:44)
[2018-06-16] MEDS: CITALOPRAM 20 MG TAB PO (08:41)
[2018-06-16] MEDS: LIDOCAINE 5% PATCH TD (08:42)
[2018-06-16 16:49] LABS: ADD UMIC NO; UR ASCORBIC ACID NEGATIVE (NEGATIVE); UR BILIRUBIN (Dip) NEGATIVE (NEGATIVE); UR BLOOD (Dip) NEGATIVE (NEGATIVE); UR CLARITY CLEAR (CLEAR); UR COLOR YELLOW (YELLOW); UR GLUCOSE (Dip) NEGATIVE (NEGATIVE); UR KETONES (Dip) NEGATIVE (NEGATIVE); UR LEUKOCYTE ESTERASE (Dip) NEGATIVE Leu/ul (NEGATIVE); UR NITRITE (Dip) NEGATIVE (NEGATIVE); UR SPECIFIC GRAVITY (Dip) 1.005 (1.003-1.030); UR TOTAL PROTEIN (Dip) NEGATIVE (NEGATIVE); UR UROBILINOGEN (Dip) NEGATIVE (NEGATIVE)
[2018-06-16] MEDS ORDERED: HYDROCODONE/APAP (5/325) TAB PO (17:30)
[2018-06-16] MEDS: SENNA TAB PO (21:37)
[2018-06-16] MEDS: LORAZEPAM 0.5 MG TAB PO (21:37)
[2018-06-16] MEDS: HYDROCODONE/APAP (5/325) TAB PO (21:37)
[2018-06-16] MEDS: ATORVASTATIN 10 MG TAB PO (21:38)
[2018-06-17] MEDS: HYDROCODONE/APAP (5/325) TAB PO ×5 (04:39→22:00)
[2018-06-17] MEDS: LEVOTHYROXINE 125 MCG TAB PO (06:22)
[2018-06-17] MEDS: LIDOCAINE 5% PATCH TD (08:45)
[2018-06-17] MEDS: DOCUSATE SODIUM 100 MG CAP PO (08:46)
[2018-06-17] MEDS: BENAZEPRIL 10 MG TAB PO (08:47)
[2018-06-17] MEDS: MAGNESIUM HYDROXIDE 30ML CUP PO (08:47)
[2018-06-17] MEDS: CITALOPRAM 20 MG TAB PO (08:47)
[2018-06-17] MEDS: NEOMYC/POLYMYX/BACIT 30 GM OINT TOP ×2 (08:49→20:51)
[2018-06-17] MEDS: OXYMETAZOLINE 0.05% 15 ML NAS SPRAY NASAL ×2 (08:49→20:51)
[2018-06-17] MEDS: LORAZEPAM 0.5 MG TAB PO (16:40)
[2018-06-17 17:33] LABS: ADD MAN DIFF? NO
[2018-06-17 17:35] LABS: BASOPHILS % 0.7 % (0.0-2.0); EOSINOPHILS # 0.1 10^3/ul (0.0-0.5); EOSINOPHILS % 2.2 % (0.0-7.0); HEMATOCRIT 31.8 % (37.0-47.0); LYMPHOCYTES # 1.9 10^3/ul (0.8-2.9); LYMPHOCYTES % 31.9 % (15.0-51.0); MEAN CORPUSCULAR HEMOGLOBIN 31.2 pg (29.0-33.0); MEAN CORPUSCULAR HGB CONC 31.4 g/dl (32.0-37.0); MEAN CORPUSCULAR VOLUME 99.1 fl (82.0-101.0); MONOCYTE # 0.6 10^3/ul (0.3-0.9); MONOCYTES % 10.5 % (0.0-11.0); NEUTROPHIL # 3.3 10^3/ul (1.6-7.5); NEUTROPHILS % 54.4 % (39.0-77.0); PLATELET COUNT 268 10^3/UL (140-415); RED BLOOD COUNT 3.21 10^6/ul (4.20-5.40); RED CELL DISTRIBUTION WIDTH 12.6 % (11.5-14.5)
[2018-06-17 17:53] LABS: ANION GAP 12 (5-13); BLOOD UREA NITROGEN 12 mg/dl (7-20); CALCIUM 8.3 mg/dl (8.4-10.2); CARBON DIOXIDE 31 mmol/L (21-31); CHLORIDE 99 mmol/L (97-110); CREATININE 0.68 mg/dl (0.44-1.00); Estimated GFR > 60 mL/min (>60); GLUCOSE 115 mg/dl (70-220); POTASSIUM 3.9 mmol/L (3.5-5.1); SODIUM 142 mmol/L (135-144)
[2018-06-17] MEDS: PANTOPRAZOLE (EC) 40 MG TAB PO (17:53)
[2018-06-17] MEDS: AL HYDROX/MG HYDROX/SIMETH 30 ML CUP PO (18:43)
[2018-06-17] MEDS: ATORVASTATIN 10 MG TAB PO (20:51)
[2018-06-18] MEDS: LORAZEPAM 0.5 MG TAB PO ×3 (00:02→21:21)
[2018-06-18] MEDS: HYDROCODONE/APAP (5/325) TAB PO ×5 (03:21→21:23)
[2018-06-18] MEDS: PANTOPRAZOLE (EC) 40 MG TAB PO (06:22)
[2018-06-18] MEDS: LEVOTHYROXINE 125 MCG TAB PO (06:22)
[2018-06-18] MEDS: CITALOPRAM 20 MG TAB PO (08:36)
[2018-06-18] MEDS: BENAZEPRIL 10 MG TAB PO (08:37)
[2018-06-18] MEDS: OXYMETAZOLINE 0.05% 15 ML NAS SPRAY NASAL ×2 (08:38→21:23)
[2018-06-18] MEDS: LIDOCAINE 5% PATCH TD (08:39)
[2018-06-18] MEDS: NEOMYC/POLYMYX/BACIT 30 GM OINT TOP ×2 (12:34→21:23)
[2018-06-18] MEDS: LEVOFLOXACIN 250 MG TAB PO (13:53)
[2018-06-18] MEDS: ATORVASTATIN 10 MG TAB PO (21:21)
[2018-06-19] MEDS: HYDROCODONE/APAP (5/325) TAB PO ×3 (01:26→14:17)
[2018-06-19] MEDS: LEVOTHYROXINE 125 MCG TAB PO (06:23)
[2018-06-19] MEDS: LEVOFLOXACIN 250 MG TAB PO (06:23)
[2018-06-19] MEDS: PANTOPRAZOLE (EC) 40 MG TAB PO (06:26)
[2018-06-19] MEDS: OXYMETAZOLINE 0.05% 15 ML NAS SPRAY NASAL ×2 (09:03→20:24)
[2018-06-19] MEDS: CITALOPRAM 20 MG TAB PO (09:03)
[2018-06-19] MEDS: BENAZEPRIL 10 MG TAB PO (09:03)
[2018-06-19] MEDS: LIDOCAINE 5% PATCH TD (09:04)
[2018-06-19] MEDS: NEOMYC/POLYMYX/BACIT 30 GM OINT TOP ×2 (09:04→20:28)
[2018-06-19] MEDS: GABAPENTIN 100 MG CAP PO ×3 (12:05→20:27)
[2018-06-19] MEDS: AL HYDROX/MG HYDROX/SIMETH 30 ML CUP PO (20:24)
[2018-06-19] MEDS: ATORVASTATIN 10 MG TAB PO (20:25)
[2018-06-20] MEDS: HYDROCODONE/APAP (5/325) TAB PO ×3 (02:09→20:18)
[2018-06-20] MEDS: PANTOPRAZOLE (EC) 40 MG TAB PO (06:16)
[2018-06-20] MEDS: LEVOFLOXACIN 250 MG TAB PO (06:16)
[2018-06-20] MEDS: LEVOTHYROXINE 125 MCG TAB PO (06:16)
[2018-06-20] MEDS: LIDOCAINE 5% PATCH TD (08:51)
[2018-06-20] MEDS: GABAPENTIN 100 MG CAP PO ×3 (08:51→20:18)
[2018-06-20] MEDS: CITALOPRAM 20 MG TAB PO (08:51)
[2018-06-20] MEDS: OXYMETAZOLINE 0.05% 15 ML NAS SPRAY NASAL ×2 (08:52→20:19)
[2018-06-20] MEDS: BENAZEPRIL 10 MG TAB PO (08:52)
[2018-06-20] MEDS: NEOMYC/POLYMYX/BACIT 30 GM OINT TOP ×2 (08:53→20:20)
[2018-06-20] MEDS: LORAZEPAM 0.5 MG TAB PO ×2 (13:18→22:01)
[2018-06-20] MEDS: HYDROmorphONE 0.5 MG/0.5 ML SYG IM ×2 (14:37→15:47)
[2018-06-20] MEDS: ATORVASTATIN 10 MG TAB PO (20:18)
[2018-06-20] MEDS: MAGNESIUM HYDROXIDE 30ML CUP PO (20:23)
[2018-06-21] MEDS: HYDROCODONE/APAP (5/325) TAB PO ×3 (04:40→17:31)
[2018-06-21] MEDS: LEVOTHYROXINE 125 MCG TAB PO (06:08)
[2018-06-21] MEDS: PANTOPRAZOLE (EC) 40 MG TAB PO (06:08)
[2018-06-21] MEDS: LEVOFLOXACIN 250 MG TAB PO (06:09)
[2018-06-21] MEDS: HYDROmorphONE 0.5 MG/0.5 ML SYG SC ×3 (07:46→18:51)
[2018-06-21] MEDS: CITALOPRAM 20 MG TAB PO (08:52)
[2018-06-21] MEDS: GABAPENTIN 100 MG CAP PO ×3 (08:52→20:46)
[2018-06-21] MEDS: BENAZEPRIL 10 MG TAB PO (08:52)
[2018-06-21] MEDS: LIDOCAINE 5% PATCH TD (08:53)
[2018-06-21] MEDS: NEOMYC/POLYMYX/BACIT 30 GM OINT TOP ×2 (08:53→20:48)
[2018-06-21] MEDS: OXYMETAZOLINE 0.05% 15 ML NAS SPRAY NASAL ×2 (08:58→20:46)
[2018-06-21] MEDS: COPAXONE 40 MG SC (08:59)
[2018-06-21 14:01] LABS: ADD MAN DIFF? NO
[2018-06-21 14:02] LABS: WHITE BLOOD COUNT 5.1 10^3/ul (4.8-10.8)
[2018-06-21 14:02] LABS: BASOPHILS % 0.6 % (0.0-2.0); EOSINOPHILS # 0.1 10^3/ul (0.0-0.5); EOSINOPHILS % 2.4 % (0.0-7.0); HEMATOCRIT 33.8 % (37.0-47.0); HEMOGLOBIN 10.7 g/dl (12.0-16.0); LYMPHOCYTES # 1.6 10^3/ul (0.8-2.9); MEAN CORPUSCULAR HEMOGLOBIN 31.6 pg (29.0-33.0); MEAN CORPUSCULAR HGB CONC 31.7 g/dl (32.0-37.0); MEAN CORPUSCULAR VOLUME 99.7 fl (82.0-101.0); MEAN PLATELET VOLUME 11.3 fl (7.4-10.4); MONOCYTE # 0.6 10^3/ul (0.3-0.9); MONOCYTES % 10.8 % (0.0-11.0); NEUTROPHIL # 2.8 10^3/ul (1.6-7.5); PLATELET COUNT 235 10^3/UL (140-415); RED BLOOD COUNT 3.39 10^6/ul (4.20-5.40); RED CELL DISTRIBUTION WIDTH 12.5 % (11.5-14.5)
[2018-06-21] MEDS: LORAZEPAM 0.5 MG TAB PO ×2 (14:55→23:13)
[2018-06-21] MEDS: ATORVASTATIN 10 MG TAB PO (20:46)
[2018-06-22] MEDS: HYDROmorphONE 0.5 MG/0.5 ML SYG SC ×2 (01:41→05:53)
[2018-06-22] MEDS: PANTOPRAZOLE (EC) 40 MG TAB PO (05:53)
[2018-06-22] MEDS: LEVOTHYROXINE 125 MCG TAB PO (05:53)
[2018-06-22] MEDS: LEVOFLOXACIN 250 MG TAB PO (05:53)
[2018-06-22] MEDS: CITALOPRAM 20 MG TAB PO (08:46)
[2018-06-22] MEDS: GABAPENTIN 100 MG CAP PO ×3 (08:46→20:00)
[2018-06-22] MEDS: LIDOCAINE 5% PATCH TD (08:48)
[2018-06-22] MEDS: BENAZEPRIL 10 MG TAB PO (08:48)
[2018-06-22] MEDS: NEOMYC/POLYMYX/BACIT 30 GM OINT TOP ×2 (08:50→20:01)
[2018-06-22] MEDS: OXYMETAZOLINE 0.05% 15 ML NAS SPRAY NASAL ×2 (08:53→20:01)
[2018-06-22] MEDS: HYDROCODONE/APAP (5/325) TAB PO ×2 (11:27→20:01)
[2018-06-22 18:39] LABS: OCCULT BLOOD STOOL NEGATIVE (NEGATIVE)
[2018-06-22] MEDS: LORAZEPAM 0.5 MG TAB PO (19:59)
[2018-06-22] MEDS: ATORVASTATIN 10 MG TAB PO (20:00)
[2018-06-23] MEDS: HYDROmorphONE 0.5 MG/0.5 ML SYG SC ×3 (04:04→20:35)
[2018-06-23] MEDS: LEVOTHYROXINE 125 MCG TAB PO (06:54)
[2018-06-23] MEDS: PANTOPRAZOLE (EC) 40 MG TAB PO (06:54)
[2018-06-23] MEDS: LEVOFLOXACIN 250 MG TAB PO (06:54)
[2018-06-23] MEDS: COPAXONE 40 MG SC (08:28)
[2018-06-23] MEDS: LIDOCAINE 5% PATCH TD (08:30)
[2018-06-23] MEDS: CITALOPRAM 20 MG TAB PO (08:30)
[2018-06-23] MEDS: GABAPENTIN 100 MG CAP PO ×3 (08:31→20:26)
[2018-06-23] MEDS: BENAZEPRIL 10 MG TAB PO (08:32)
[2018-06-23] MEDS: NEOMYC/POLYMYX/BACIT 30 GM OINT TOP ×2 (08:33→20:32)
[2018-06-23] MEDS: OXYMETAZOLINE 0.05% 15 ML NAS SPRAY NASAL ×2 (08:33→20:27)
[2018-06-23] MEDS: LORAZEPAM 0.5 MG TAB PO ×2 (10:50→23:08)
[2018-06-23] MEDS: MAGNESIUM HYDROXIDE 30ML CUP PO (14:58)
[2018-06-23] MEDS: ATORVASTATIN 10 MG TAB PO (20:26)
[2018-06-24] MEDS: HYDROCODONE/APAP (5/325) TAB PO ×2 (00:48→21:25)
[2018-06-24] MEDS: LEVOFLOXACIN 250 MG TAB PO (06:27)
[2018-06-24] MEDS: LEVOTHYROXINE 125 MCG TAB PO (06:27)
[2018-06-24] MEDS: PANTOPRAZOLE (EC) 40 MG TAB PO (06:27)
[2018-06-24] MEDS: HYDROmorphONE 0.5 MG/0.5 ML SYG SC ×3 (07:39→17:31)
[2018-06-24] MEDS: OXYMETAZOLINE 0.05% 15 ML NAS SPRAY NASAL ×2 (08:46→21:25)
[2018-06-24] MEDS: LIDOCAINE 5% PATCH TD (08:47)
[2018-06-24] MEDS: CITALOPRAM 20 MG TAB PO (08:47)
[2018-06-24] MEDS: GABAPENTIN 100 MG CAP PO ×3 (08:48→21:24)
[2018-06-24] MEDS: BENAZEPRIL 10 MG TAB PO (08:48)
[2018-06-24] MEDS: NEOMYC/POLYMYX/BACIT 30 GM OINT TOP ×2 (08:49→21:28)
[2018-06-24] MEDS: LORAZEPAM 0.5 MG TAB PO (21:24)
[2018-06-24] MEDS: ATORVASTATIN 10 MG TAB PO (21:24)
[2018-06-25] MEDS: HYDROmorphONE 0.5 MG/0.5 ML SYG SC ×3 (00:23→12:46)
[2018-06-25] MEDS: PANTOPRAZOLE (EC) 40 MG TAB PO (06:27)
[2018-06-25] MEDS: LEVOFLOXACIN 250 MG TAB PO (06:27)
[2018-06-25] MEDS: LEVOTHYROXINE 125 MCG TAB PO (06:27)
[2018-06-25] MEDS: BENAZEPRIL 10 MG TAB PO (08:09)
[2018-06-25] MEDS: GABAPENTIN 100 MG CAP PO ×2 (08:10→13:33)
[2018-06-25] MEDS: CITALOPRAM 20 MG TAB PO (08:10)
[2018-06-25] MEDS: OXYMETAZOLINE 0.05% 15 ML NAS SPRAY NASAL (08:10)
[2018-06-25] MEDS: NEOMYC/POLYMYX/BACIT 30 GM OINT TOP (08:10)
[2018-06-25] MEDS: LIDOCAINE 5% PATCH TD (08:13)
[2018-06-25] MEDS: LORAZEPAM 0.5 MG TAB PO (10:53)
[2018-06-25] MEDS: HYDROCODONE/APAP (5/325) TAB PO (10:53)
[2018-06-25] MEDS: COPAXONE 40 MG SC (10:55)
== END 2018-06-25 13:30 | disposition home health service (06) | DRG 560 ==
LOC: VRC 17:15
DX: Z47.89 Encounter for other orthopedic aftercare (principal); N39.0 Urinary tract infection, site not specified; G35 Multiple sclerosis; M54.16 Radiculopathy, lumbar region; M21.372 Foot drop, left foot; R53.1 Weakness; I10 Essential (primary) hypertension; E78.5 Hyperlipidemia, unspecified; E03.9 Hypothyroidism, unspecified; R52 Pain, unspecified; R53.81 Other malaise; R07.9 Chest pain, unspecified; M54.5 Low back pain
CPT/HCPCS: 80048; 80053; 81001; 81003; 82270; 85025; 87075; 87081; 87086; 97110; 97112; 97116; 97150; 97163; 97167; 97530; 97535